=== PATIENT | female | born 1985 | race Hispanic/Latino ===

== ENCOUNTER 2018-08-10 16:01 | Outpatient (CLI) | payer OTHER ==
[2018-08-10 17:19] LABS: #Basophils 0.1 thou/uL (0.0-0.2); #Eosinphils 0.5 thou/uL (0.0-0.7); #Monocytes 0.3 thou/uL (0.11-0.59); #Neutrophils 4.5 thou/uL (1.40-6.50); %Basophils 0.9 % (0.0-1.0); %Lymphocytes 27.5 % (21.0-51.0); %Monocytes 4.1 % (0.0-10.0); %Neutrophils 60.4 % (42.0-75.0); Mean Corpuscular HGB CONC 33.2 g/dL (32.0-36.0); Mean Corpuscular Hemoglobin 26.8 pg (27.0-31.0); Mean Corpuscular Volume 80.5 fL (78.0-98.0); Mean Platelet Volume 8.7 fL (7.4-10.4); Platelet Count 304 thou/uL (130-400); RBC Distribution Width 12.6 % (11.5-14.5); Red Blood Cell (RBC) Count 4.85 mill/uL (4.20-5.40); White Blood Cell (WBC) Count 7.4 thou/uL (4.8-10.8)
[2018-08-10 17:36] LABS: BHCG - Serum Negative (NEGATIVE); Pregs Control Background? CLEAR/WHITE (CLR/WHITE); Pregs Control Bar Appear? YES (CONTROL BAR)
[2018-08-10 17:40] LABS: Anion Gap 12 mmol/L (10-20); BUN (Urea Nitrogen) 15 mg/dL (7.0-18.7); Calc. Creatinine Clearance 0 mL/min (70-130); Calcium 9.8 mg/dL (7.8-10.44); Carbon Dioxide 24 mmol/L (22-29); Chloride 105 mmol/L (98-107); Estimated GFR-MDRD Greater than 90; Glucose 88 mg/dL (70-105); Potassium 3.7 mmol/L (3.5-5.1); Sodium 137 mmol/L (136-145)
== END 2018-08-10 16:02 | disposition home or self-care (01) ==
LOC: LABBT 16:01
PROVIDERS: ATTEND Surgery
DX: Z01.812 Encounter for preprocedural laboratory examination (principal); D17.9 Benign lipomatous neoplasm, unspecified
CPT/HCPCS: 80048; 84703; 85025

== ENCOUNTER 2018-08-29 10:21 | Day surgery (SDC) | payer OTHER ==
[2018-08-10 16:29] VITALS: BMI 22.1
[2018-08-29] MEDS ORDERED: CEFAZOLIN 2 GM/50 ML BAG ONE (11:35)
[2018-08-29] MEDS ORDERED: Fentanyl 100 MCG/2 ML VIAL ONE ×2 (11:40→12:25)
[2018-08-29] MEDS ORDERED: Midazolam HCl 2 mg/2 ml Vial ONE ×2 (11:40→12:43)
[2018-08-29] MEDS ORDERED: Bupivacaine/Epinephrine 0.25% 30 ML VIAL ONE ×2 (12:05→13:27)
[2018-08-29] MEDS ORDERED: Bacitracin Zinc Ointment 30 gm TUBE ONE (12:05)
[2018-08-29] MEDS ORDERED: PROPOFOL 200 MG/20 ML VIAL ONE (15:03)
[2018-08-29] MEDS ORDERED: Glycopyrrolate 0.2 MG/ML 5 ML SYRINGE ONE (15:03)
[2018-08-29] MEDS ORDERED: Dexamethasone 20 MG/5 ML VIAL ONE (15:03)
[2018-08-29] MEDS ORDERED: Lidocaine 1% PF 5 ML VIAL ONE (15:03)
[2018-08-29] MEDS ORDERED: Ondansetron PF 4 MG/2 ML Vial ONE (15:03)
[2018-08-29] MEDS ORDERED: Ketorolac Tromethamine 30 MG/ML VIAL ONE (15:03)
[2018-08-29] MEDS ORDERED: Meperidine HCl/PF 25 MG/ML VIAL ONE (15:17)
[2018-08-29] MEDS ORDERED: HYDROcodone/Acetaminophen 5/325 mg Tablet ONE (18:00)
--- NOTE | 2018-09-02 16:12 | PDOC.OP ---
Operative Note - Operative Note Operative Note: PROCEDURE: Excision of back lipomas DATE OF PROCEDURE: 08/29/2018 SURGEON: Ruth Richey M.D. PREOPERATIVE DIAGNOSES: Back lipomas 4 POSTOPERATIVE DIAGNOSIS: Back lipomas 2, with large trilobed central lipoma HISTORY: Patient with enlarging and symptomatic lipomas of the back which she desires to have excised. It was recommended that this be done in the operating room due to the large size of the lipomas and need for postoperative drain placement. PROCEDURE IN DETAIL: After informed consent was obtained and appropriate preoperative antibiotics were administered the patient was taken to the operating room and placed in supine position. General endotracheal anesthesia was administered and she was then moved to the prone position with appropriate padding and support of the extremities. She was prepped and draped in the standard sterile fashion and local anesthesia infused surrounding the lipomas for a field block. An incision was made over the left lateral lipoma and dissection carried down to the encapsulated and slightly lobulated lipoma. This was excised in its totality including a small intramuscular portion. This measured 9 x 6 x 2 cm. The wound was irrigated and a JOSE G drain placed and secured to the skin. The wound was closed in layers with 3-0 subcutaneous and 4- 0 subcuticular Monocryl sutures. Attention was then turned to the 3 palpable paraspinous lipomas. A vertical incision was made over the left paraspinous lipoma and this was dissected out. It appeared to have a neck crossing the midline to the right lateral area and it was felt that it might actually be attached to the right paraspinous lipomas. A second vertical incision was made over the right paraspinous lipomas and these were found to be deeply lobulated but a single mass extending across the midline to the left paraspinous lipoma. The left portion was reduced into the right wound and the entire lipoma dissected free and resected including a small intramuscular portion. This large trilobed lobulated lipoma measured 16 x 15 x 2 cm. There was some additional slightly lobulated fatty tissue in the deep inferior portion of the wound which was felt to possibly represent part of the lipoma and this was resected as well. Wound was irrigated and hemostasis verified. A single JOSE G drain was placed into all 3 areas of the lipoma and secured to the skin. Both incisions were closed with 3-0 subcutaneous and 4-0 subcuticular Monocryl sutures. All incisions were dressed with Dermabond and the JPs with gauze and Tegaderm. The patient was moved back to the supine position, extubated and taken to recovery in good condition. Estimated blood loss was minimal. There were no complications. Specimens are back lipomas.
== END 2018-08-29 18:05 | disposition home or self-care (01) ==
LOC: SDC 10:21
PROVIDERS: ATTEND Surgery
PROC: 0KBG0ZZ Excision of Left Trunk Muscle, Open Approach (ICD-10-PCS; principal; 2018-08-29)
PROC: 0KBF0ZZ Excision of Right Trunk Muscle, Open Approach (ICD-10-PCS; principal; 2018-08-29)
DX: D17.1 Benign lipomatous neoplasm of skin and subcutaneous tissue of trunk (principal); Z79.899 Other long term (current) drug therapy
CPT/HCPCS: 88304; J0131; J1100; J1885; J2001; J2175; J2250; J2405; J2704; J3010

== ENCOUNTER 2021-03-12 16:55 | Emergency (ER) | payer OTHER ==
[2021-03-12] MEDS ORDERED: HYDROcodone/Acetaminophen 5/325 mg Tablet ONE (18:13)
== END 2021-03-12 18:56 | disposition home or self-care (01) ==
LOC: ERS 16:55
DX: M25.572 Pain in left ankle and joints of left foot (principal); M54.2 Cervicalgia; V89.2XXA Person injured in unspecified motor-vehicle accident, traffic, initial encounter
CPT/HCPCS: 70450; 72125